=== PATIENT | female | born 2005 | race Hispanic/Latino ===

== ENCOUNTER 2024-10-12 16:58 | Inpatient (IN) | payer OTHER ==
[~2024-10-12] VITALS: Ht 157.5 cm; Wt 79.4 kg
[2024-10-12] MEDS: SODIUM CHLORIDE 0.9% 1000ML 1,000 ML IV STA ×3 (17:33→20:10)
[2024-10-12 17:46] LABS: BASOPHILS % 0.4 % (0.0-1.0); EOSINOPHILS % 0.2 % (0.0-6.0); HEMATOCRIT 44.1 % (34.2-44.1); HEMOGLOBIN 14.1 g/dL (12.0-16.0); LYMPHOCYTES # (AUTO) 1.2 (1.0-3.2); LYMPHOCYTES % 10.8 % (18.0-39.1); MEAN CORPUSCULAR VOLUME 84.5 fL (81-99); MONOCYTES # (AUTO) 0.7 (0.2-0.8); MONOCYTES % 5.9 % (4.4-11.3); NEUTROPHILS # (AUTO) 9.2 (2.1-6.9); NEUTROPHILS % 82.2 % (38.7-80.0); PLATELET COUNT 324 x10e3/uL (140-360); RED BLOOD COUNT 5.22 x10e6/uL (3.6-5.1); RED CELL DISTRIBUTION WIDTH 13.7 % (11.7-14.4); WHITE BLOOD COUNT 11.22 x10e3/uL (4.8-10.8)
[2024-10-12 17:52] LABS: INR 0.85; PROTHROMBIN TIME 12.2 seconds (11.9-14.5)
[2024-10-12 17:55] LABS: PARTIAL THROMBOPLASTIN TIME 22.7 seconds (23.8-35.5)
[2024-10-12 18:04] LABS: ALANINE AMINOTRANSFERASE 18 IU/L (0-55); ALBUMIN 3.9 g/dL (3.5-5.0); ALBUMIN/GLOBULIN RATIO 0.9 (0.8-2.0); ALKALINE PHOSPHATASE 80 IU/L (40-150); BILIRUBIN,TOTAL 0.4 mg/dL (0.2-1.2); BLOOD UREA NITROGEN 10 mg/dL (7-26); BUN/CREATININE RATIO 12 (6-25); CALCIUM 9.8 mg/dL (8.4-10.2); CARBON DIOXIDE 21 mmol/L (22-29); CHLORIDE 100 mmol/L (98-107); CREATINE KINASE 38 IU/L (29-168); CREATININE, SERUM 0.82 mg/dL (0.57-1.11); EST GLOMERULAR FILTRATION RATE 105 ML/MIN (>=60); MAGNESIUM 1.8 MG/DL (1.3-2.1); SODIUM 134 mmol/L (136-145); TOTAL PROTEIN 8.2 g/dL (6.5-8.1)
[2024-10-12] MEDS ORDERED: IOPAMIDOL 370 MG/ML 100 ML INFUS..BTL INJ ONE (18:06)
[2024-10-12 18:12] LABS: GLUCOSE 436 mg/dL (74-118)
[2024-10-12 18:25] LABS: THYROID STIMULATING HORMONE 0.559 uIU/mL (0.350-4.940); TROPONIN I 0.002 ng/mL (0-0.300)
[2024-10-12 18:39] LABS: BILIRUBIN,URINE NEGATIVE (NEGATIVE); CLARITY,URINE HAZY (CLEAR); COLOR,URINE YELLOW (YELLOW); GLUCOSE, URINE 500 (NEGATIVE); KETONES,URINE TRACE (NEGATIVE); LEUKOCYTE ESTERASE ,URINE TRACE (NEGATIVE); NITRITE,URINE NEGATIVE (NEGATIVE); PH,URINE 5.5 (5 - 7); PROTEIN,URINE DIPSTICK NEGATIVE (NEGATIVE); URINE UROBILINOGEN 0.2 mg/dL (0.2 - 1)
[2024-10-12 18:50] VITALS: PULSE 111; RESP 20; O2SAT 100
[2024-10-12 18:54] LABS: WBC,URINE (MAN) 0-5 /HPF (0-5)
[2024-10-12] MEDS: INSULIN REGULAR, HUMAN 100 UNIT/1 ML IV ONE (18:54)
[2024-10-12 18:55] LABS: AMORPHOUS SEDIMENT,URINE MODERATE (FEW); BACTERIA,URINE MODERATE /HPF; EPITHELIAL CELLS,URINE MODERATE /LPF; RBC,URINE 0-5 /HPF (0-5); TRANSITIONAL EPI CELLS,URINE MANY
[2024-10-12 19:11] LABS: ABG HCO3 22 mmol/L (22-26); ABG PCO2 35 mmHg (35-45); ABG PH 7.41 (7.35-7.45); ABG PO2 108 mmHg (80-105)
[2024-10-12 19:12] LABS: ABG TCO2 23
[2024-10-12 20:38] VITALS: TEMP 98.6
[2024-10-12 21:27] LABS: ALBUMIN 3.3 g/dL (3.5-5.0); ANION GAP 13.4 mmol/L (8-16); BILIRUBIN,TOTAL 0.2 mg/dL (0.2-1.2); CALCIUM 8.4 mg/dL (8.4-10.2); CREATININE, SERUM 0.68 mg/dL (0.57-1.11); TOTAL PROTEIN 6.5 g/dL (6.5-8.1)
[2024-10-12 21:28] LABS: POTASSIUM 3.4 mmol/L (3.5-5.1)
[2024-10-12] MEDS: SODIUM CHLORIDE 0.9% 1000ML 1,000 ML IV SCH (21:42)
[2024-10-12] MEDS: ACETAMINOPHEN 325 MG TAB PO PRN (22:47)
[2024-10-12] MEDS ORDERED: DEXTROSE 50% SYRINGE 50 ML IV PRN (23:30)
[2024-10-12 23:50] VITALS: PULSE 110; RESP 20
[2024-10-13] VITALS (10 sets, daily range): BP systolic 118–128; BP diastolic 77–88; PULSE 96–130; RESP 18–20; TEMP 98.1–100.3; O2SAT 97–100
[2024-10-13] MEDS ORDERED: MELATONIN 3 MG TAB PO PRN (05:30)
[2024-10-13] MEDS ORDERED: MAGNESIUM/ALUMINUM/SIMETHICONE 30 ML UDC PO PRN (05:30)
[2024-10-13] MEDS ORDERED: HYDRALAZINE HCL 20 MG/ML VIAL IV PRN (05:30)
[2024-10-13] MEDS ORDERED: ONDANSETRON HCL INJ 2MG/ML 2ML 2 MG/ML VIAL IV PRN (05:30)
[2024-10-13] MEDS ORDERED: DOCUSATE SODIUM 100 MG CAP PO PRN (05:30)
[2024-10-13 05:31] LABS: BASOPHILS % 0.4 % (0.0-1.0); EOSINOPHILS # (AUTO) 0.1 (0.0-0.4); EOSINOPHILS % 0.9 % (0.0-6.0); HEMATOCRIT 36.1 % (34.2-44.1); HEMOGLOBIN 11.7 g/dL (12.0-16.0); LYMPHOCYTES # (AUTO) 1.8 (1.0-3.2); LYMPHOCYTES % 26.9 % (18.0-39.1); MEAN CORPUSCULAR HEMOGLOBIN 26.6 pg (28-32); MEAN CORPUSCULAR HGB CONC 32.4 g/dL (31-35); MONOCYTES # (AUTO) 0.7 (0.2-0.8); MONOCYTES % 10.2 % (4.4-11.3); NEUTROPHILS # (AUTO) 4.2 (2.1-6.9); NEUTROPHILS % 61.3 % (38.7-80.0); PLATELET COUNT 264 x10e3/uL (140-360); RED CELL DISTRIBUTION WIDTH 13.7 % (11.7-14.4); WHITE BLOOD COUNT 6.77 x10e3/uL (4.8-10.8)
[2024-10-13] MEDS: GUAIFENESIN/DEXTROMETHORPHAN LIQD 5 ML UDC PO PRN (06:10)
[2024-10-13 06:11] LABS: ALBUMIN 3.1 g/dL (3.5-5.0); ANION GAP 13.3 mmol/L (8-16); BILIRUBIN,TOTAL 0.4 mg/dL (0.2-1.2); CALCIUM 8.2 mg/dL (8.4-10.2); CREATININE, SERUM 0.59 mg/dL (0.57-1.11); TOTAL PROTEIN 6.1 g/dL (6.5-8.1)
[2024-10-13 06:12] LABS: POTASSIUM 3.3 mmol/L (3.5-5.1)
[2024-10-13 06:41] LABS: CHOL/HDL RATIO 7.7 (3.0-3.6); CHOLESTEROL 224 MD/DL (0-199); CREATINE KINASE 30 IU/L (29-168); HDL CHOLESTEROL 29 MG/DL (40-60); TRIGLYCERIDES 600 MG/DL (0-149)
[2024-10-13 06:54] LABS: TROPONIN I < 0.001 ng/mL (0-0.300)
[2024-10-13] MEDS: INSULIN REGULAR, HUMAN 100 UNIT/1 ML SQ SCH (09:11)
[2024-10-13 11:10] LABS: CORONAVIRUS COVID-19 AG NEGATIVE (NEGATIVE); INFLUENZA A AG NEGATIVE (NEGATIVE); INFLUENZA B AG NEGATIVE (NEGATIVE)
[2024-10-13 12:57] LABS: CREATINE KINASE 37 IU/L (29-168)
[2024-10-13 13:05] LABS: TROPONIN I < 0.001 ng/mL (0-0.300)
[2024-10-13 15:17] LABS: FREE T4 (FREE THYROXINE) 0.99 ng/dL (0.8-1.8); THYROID STIMULATING HORMONE 0.911 uIU/mL (0.350-4.940)
[2024-10-13] MEDS: FENOFIBRATE 145 MG TAB PO SCH (16:38)
[2024-10-13] MEDS: INSULIN LISPRO 100 UNIT/1 ML 3ML VIAL SQ SCH ×2 (16:39→16:40)
[2024-10-13] MEDS: INSULIN GLARGINE 100 UNITS/ML VIAL SQ SCH (21:44)
[2024-10-14] VITALS (7 sets, daily range): BP systolic 109–124; BP diastolic 57–85; PULSE 105–133; RESP 17–18; TEMP 98.1–99.2; O2SAT 96–100
[2024-10-14 07:58] LABS: ABG HCO3 22 mmol/L (22-26); ABG PCO2 35 mmHg (35-45); ABG PH 7.41 (7.35-7.45); ABG PO2 108 mmHg (80-105); ABG TCO2 23
[2024-10-14] MEDS: METOPROLOL SUCCINATE 25 MG TAB XL PO SCH (08:25)
[2024-10-14] MEDS: CHLORASEPTIC SPRAY 177 ML BTL MM PRN (08:34)
[2024-10-14] MEDS: INSULIN LISPRO 100 UNIT/1 ML 3ML VIAL SQ SCH (17:09)
[2024-10-14] MEDS: INSULIN GLARGINE 100 UNITS/ML VIAL SQ SCH (21:09)
[2024-10-15 00:57] VITALS: BP 110/76; PULSE 105; RESP 17; TEMP 98.7; O2SAT 94
[2024-10-15 04:00] VITALS: BP 110/75; PULSE 107; RESP 16; TEMP 98.7; O2SAT 98
[2024-10-15 07:28] VITALS: BP 128/81; PULSE 98; RESP 21; TEMP 97.9; O2SAT 100
[2024-10-15 09:00] VITALS: BP 128/81; PULSE 98; RESP 21; TEMP 97.9; O2SAT 100
[2024-10-15 11:42] VITALS: BP 118/82; PULSE 96; RESP 17; TEMP 97.9; O2SAT 99
[2024-10-15] MEDS ORDERED: TOPROL XL25 MG PO (13:45)
[2024-10-15] MEDS ORDERED: FENOFIBRATE145 MG PO (13:45)
[2024-10-15] MEDS ORDERED: Glucose test strips XX (13:51)
[2024-10-15] MEDS ORDERED: BLOOD GLUCOSE1 EAC1 XX (13:51)
[2024-10-15] MEDS ORDERED: LANCETS1 EACH XX (13:51)
== END 2024-10-15 14:56 | disposition home or self-care (01) | DRG 638 ==
LOC: ER 17:17 → ERHOLD 20:52 → MED/SURG 23:59
PROVIDERS: ADMIT Internal Medicine Critical Care Medicine; ATTEND Internal Medicine Critical Care Medicine
DX: E11.10 Type 2 diabetes mellitus with ketoacidosis without coma (principal); N39.0 Urinary tract infection, site not specified; R00.0 Tachycardia, unspecified; Z79.4 Long term (current) use of insulin; E66.9 Obesity, unspecified; Z68.32 Body mass index [BMI] 32.0-32.9, adult; Z71.3 Dietary counseling and surveillance; E78.1 Pure hyperglyceridemia; E78.5 Hyperlipidemia, unspecified; J45.909 Unspecified asthma, uncomplicated; I07.1 Rheumatic tricuspid insufficiency; Z83.3 Family history of diabetes mellitus
CPT/HCPCS: 36415; 36600; 71260; 80053; 80061; 81001; 82550; 82805; 82948; 83036; 83519; 83605; 83735; 83880; 84439; 84443; 84484; 84702; 85025; 85610; 85730; 87040; 87086; 93005; 93306; 94799; 99252; 99284; J1815; J7030; Q9967